=== PATIENT | female | born 1955 | race Two or more races ===

== ENCOUNTER → 2020-07-05 | Outpatient (CLI) | payer OTHER | END | disposition home or self-care (01) | LOC: TOM 10:08 | PROVIDERS: ATTEND Internal Medicine Gastroenterology | DX: K42.9 Umbilical hernia without obstruction or gangrene (principal); D12.8 Benign neoplasm of rectum; K57.30 Diverticulosis of large intestine without perforation or abscess without bleeding; Z12.11 Encounter for screening for malignant neoplasm of colon ==